=== PATIENT | female | born 1950 | race Caucasian/White ===

== ENCOUNTER 2024-01-03 08:49 | Outpatient (CLI) | payer MEDICARE | END 2024-01-03 08:50 | disposition home or self-care (01) | LOC: MRI 08:49 | PROVIDERS: ATTEND Otolaryngology Plastic Surgery within the Head & Neck | DX: H90.5 Unspecified sensorineural hearing loss (principal) | CPT/HCPCS: 70551 ==

== ENCOUNTER 2024-01-12 12:45 | Outpatient (CLI) | payer MEDICARE | END 2024-01-12 12:46 | disposition home or self-care (01) | LOC: MRI 12:45 | PROVIDERS: ATTEND Physical Medicine & Rehabilitation | DX: E11.40 Type 2 diabetes mellitus with diabetic neuropathy, unspecified (principal); G64 Other disorders of peripheral nervous system; M51.36 Other intervertebral disc degeneration, lumbar region; M51.37 Other intervertebral disc degeneration, lumbosacral region | CPT/HCPCS: 72148 ==